=== PATIENT | female | born 1945 | race Hispanic/Latino ===

== ENCOUNTER 2016-10-06 10:11 | Outpatient (CLI) | payer MEDICARE ==
--- NOTE | 2016-10-06 12:39 | Mammography Report ---
BONE DEXA:10/06/16 10:11:00 CLINICAL: Postmenopausal. COMPARISON: 10/05/13 TECHNIQUE: Two site bone DEXA performed on an Hologic scanner. FINDINGS: The average BMD of the lumbar spine L1-L4 is 0.958g/cm squared with a T-score of on a 0.8 and a Z-score of +1.5. This compares to 0.907g/cm squared on the last exam and represents a +5.6% change from the previous baseline. The average BMD of the left hip is 0.831g/cm squared with a T-score of 0.9 and a Z-score of +0.7. This compares to 0.812g/cm squared on the last exam and represents a +2.3% change from the previous baseline. The left femoral neck BMD is 0.620g/cm squared with a T score of -2.1 and Z score of -0.1. IMPRESSION: 1. WHO classification: Normal with average fracture risk based on spine measurements. Moderate improvement in spine BMD compared to the prior exam. 2. WHO classification: Osteopenia with increased fracture risk based on left femoral neck measurements. A modest improvement in left hip BMD compared to the prior exam. RECOMMENDATION: Clinical correlation and routine screening. DEFINITIONS: BMD = Bone Mineral Density T-score = BMD related to mean peak bone mass of young adult (mean expressed in Standard Deviation) Z-score = Age matched BMD expressed in SD World Health Organization (WHO) Diagnostic Criteria Normal T-score > -1 SD Osteopenia T-score between -1 and -2.4 SD Osteoporosis T-score -2.5 SD or below NOTE: BMD is not the only risk factor for fracture; also consider factors such as the patient's age, risk of falling, previous osteoporotic fracture, family history of osteoporotic fractures, current smoker, and low body weight. Z-scores are not calculated if >80 years of age.
--- NOTE | 2016-10-06 15:51 | Mammography Report ---
BILATERAL DIGITAL SCREENING MAMMOGRAM with CAD : 10/06/16 10:11:00 CLINICAL: Routine screening.Previous right benign ultrasound biopsy. COMPARISON:08/26/15 FINDINGS: The breasts are heterogeneously dense, which may obscure small masses.Right upper inner biopsy clip. No mass, architectural distortion or suspicious calcifications. IMPRESSION: No mammographic evidence of malignancy. BI-RADS CATEGORY: 2 -- Benign RECOMMENDATION: Routine mammographic screening in one year. COMMENT: Patient follow-up letters are generated by our [employer] application.
== END 2016-10-06 10:12 | disposition home or self-care (01) ==
LOC: SPVWC 10:11
PROVIDERS: ATTEND Internal Medicine
DX: Z12.31 Encounter for screening mammogram for malignant neoplasm of breast (principal); M85.88 Other specified disorders of bone density and structure, other site; Z78.0 Asymptomatic menopausal state
CPT/HCPCS: 77080; G0202; 77067